=== PATIENT | female | born 1960 | race African-American/Black ===

== ENCOUNTER 2016-12-28 16:33 | Emergency (ER) | payer SELFPAY ==
[2016-12-28 16:43] VITALS: BP 139/91
--- NOTE | 2016-12-28 17:09 | ER Document Report ---
HPI - HPI Pain Level: 4 Context: 56 yo female c/o pain to right hand and right knee. pt slipped on wet floor in [place]. denies other injury Associated Symptoms: None Exacerbated by: Walking Relieved by: Denies Similar symptoms previously: No Recently seen / treated by doctor: No - ROS Systems Reviewed and Negative: Yes All other systems reviewed and negative - REPRODUCTIVE Reproductive: DENIES: : - DERM Skin Color: Normal Past Medical History - General Information source: Patient - Social History Smoking Status: Never Smoker Frequency of alcohol use: None Drug Abuse: None Lives with: Family Family History: Reviewed & Not Pertinent - Past Medical History Cardiac Medical History: Reports: Hx Hypertension Renal/ Medical History: Denies: Hx Peritoneal Dialysis - Immunizations Immunizations up to date: Yes Hx Diphtheria, Pertussis, Tetanus Vaccination: Yes Vertical Provider Document - CONSTITUTIONAL Agree With Documented VS: Yes Exam Limitations: No Limitations General Appearance: WD/WN, No Apparent Distress - INFECTION CONTROL TRAVEL OUTSIDE OF THE [place] IN LAST 30 DAYS: No - HEENT HEENT: Atraumatic, Normal ENT Exam, PERRLA - NECK Neck: Normal Inspection, Supple - RESPIRATORY Respiratory: Breath Sounds Normal, No Respiratory Distress O2 Sat by Pulse Oximetry: 96 - CARDIOVASCULAR Cardiovascular: Regular Rate, Regular Rhythm - BACK Back: Normal Inspection - MUSCULOSKELETAL/EXTREMETIES Musculoskeletal/Extremeties: Tender - + tenderness to right thenar area. mild soft tissue swelling. FROM with wrist and hand. distal SMC intact. right knee with focal patellar tenderness. no echymosis, no effusion, no lateral or medial compartment tenderness. neg drawer. no popliteal pain - NEURO Level of Consciousness: Awake, Alert, Appropriate Motor/Sensory: No Motor Deficit, No Sensory Deficit - DERM Integumentary: Warm, Dry Course - Re-evaluation Re-evalutation: 12/28/16 17:08 xray negative. results reviewed with patient. oneil wrap applied to right hand and right knee. pt instructed to ice and elevate, Rx Motrin for pain and follow up with primary care. pt stable for discharge and agreeable with plan - Vital Signs Vital signs: Temp Pulse Resp BP Pulse Ox 98.5 F 76 18 139/91 H 96 12/28/16 16:37 12/28/16 16:37 12/28/16 16:37 12/28/16 16:37 12/28/16 16:37 Procedures - Immobilization right hand Pre-Proc Neuro Vasc Exam: Normal Immobilizer type: Oneil wrap Performed by: PCT Post-Proc Neuro Vasc Exam: Normal Alignment checked and good: Yes right knee Pre-Proc Neuro Vasc Exam: Normal Immobilizer type: Oneil wrap Performed by: PCT Post-Proc Neuro Vasc Exam: Normal Alignment checked and good: Yes Discharge - Discharge Clinical Impression: Contusion of right knee Qualifiers: Encounter type: initial encounter Qualified Code(s): S80.01XA - Contusion of right knee, initial encounter Contusion of right hand Qualifiers: Encounter type: initial encounter Qualified Code(s): S60.221A - Contusion of right hand, initial encounter Condition: Stable Disposition: HOME, SELF-CARE Instructions: Ice & Elevation ([facility]), Contusion ([facility]), Ibuprofen (General) ([facility]) Additional Instructions: Your xrays are negative for fracture wear oneil wrap for comfort and support motrin for discomfort follow up with primary care if symptoms persist Prescriptions: Ibuprofen [Motrin 800 Mg Tablet] 800 mg PO Q6H #20 tablet Forms: Elevated Blood Pressure
--- NOTE | 2016-12-28 17:39 | RADIOLOGY REPORT (SQ) ---
EXAM DESCRIPTION: KNEE RIGHT 4 VIEWS COMPLETED DATE/TIME: 12/28/2016 5:22 pm REASON FOR STUDY: fell on knee COMPARISON: None. NUMBER OF VIEWS: Four views right knee. LIMITATIONS: None. FINDINGS: There is no acute or significant bone, joint or soft tissue abnormality. OTHER: Normal bone density. IMPRESSION: NORMAL STUDY. TECHNICAL DOCUMENTATION: JOB ID: [id number]
== END 2016-12-28 17:35 | disposition home or self-care (01) ==
LOC: ER 16:33
DX: S80.01XA Contusion of right knee, initial encounter (principal); S60.221A Contusion of right hand, initial encounter; M79.641 Pain in right hand; M25.561 Pain in right knee; W01.0XXA Fall on same level from slipping, tripping and stumbling without subsequent striking against object, initial encounter; Y92.512 Supermarket, store or market as the place of occurrence of the external cause
CPT/HCPCS: 99283